=== PATIENT | female | born 2005 | race Caucasian/White ===

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

== ENCOUNTER → 2025-01-17 | Outpatient (CLI) | payer OTHER | END | disposition home or self-care (01) | LOC: LAB 10:57 → LAB SHORT 10:57 | DX: O09.93 Supervision of high risk pregnancy, unspecified, third trimester (principal) | CPT/HCPCS: 87081; 87150 ==

== ENCOUNTER 2025-02-08 18:15 | Inpatient (IN) | payer OTHER ==
[~2025-02-08] VITALS: Ht 162.6 cm; Wt 90.7 kg
[2025-02-08 18:29] VITALS: BP 133/85
[2025-02-08] MEDS ORDERED: Methylergonovine Maleate 0.2MG / ML 1ML Amp IM PRN (20:15)
[2025-02-08] MEDS ORDERED: OXYTOCIN/RINGER'S LACTATE 500 ML IV PRN (20:15)
[2025-02-08] MEDS ORDERED: Ondansetron HCl 2 MG / ML 2ML Vial IV PRN (20:15)
[2025-02-08] MEDS ORDERED: Lactated Ringer's 1,000 ML IV PRN ×3 (20:15)
[2025-02-08] MEDS ORDERED: Oxytocin 10 Unit / ML Vial IM PRN (20:15)
[2025-02-08] MEDS ORDERED: FentaNYL 2mcg/ml-Bup 0.1% Epd 250 ML EPI PRN (20:15)
[2025-02-08] MEDS ORDERED: Misoprostol 200 MCG Tab PR PRN (20:15)
[2025-02-08] MEDS ORDERED: Carboprost Tromethamine 250 MCG/ML 1ML Amp IM PRN (20:15)
[2025-02-08] MEDS ORDERED: Acetaminophen 500 MG Tab PO PRN (20:15)
[2025-02-08] MEDS ORDERED: ePHEDrine Sulfate 50 MG/ML 1ML Injection XX PRN (20:15)
[2025-02-08] MEDS ORDERED: Misoprostol 200 MCG Tab BC PRN (20:15)
[2025-02-08] MEDS ORDERED: Tranexamic Acid 100 ML IV SCH (20:15)
[2025-02-08 20:18] VITALS: BP 137/77
[2025-02-08] MEDS ORDERED: FentaNYL Citrate 50 MCG/ML 2 ML Injection IV PRN (20:20)
[2025-02-08] MEDS ORDERED: Calcium Carbonate 500 MG Tab Chew PO PRN (20:20)
[2025-02-08 20:58] VITALS: BP 136/84
[2025-02-08 22:12] LABS: BASOPHILS ABSOLUTE AUTO 0.03 K/mm3 (0.00-0.23); BASOPHILS PERCENT AUTO 0 % (0-2); EOSINOPHILS ABSOLUTE AUTO 0.15 K/mm3 (0.00-0.68); EOSINOPHILS PERCENT AUTO 2 % (0-6); Hematocrit 34.2 % (33.0-51.0); Hemoglobin 11.3 g/dL (11.5-16.0); IMMATURE GRAN ABSOLUTE AUTO 0.02 K/mm3 (0.00-0.10); IMMATURE GRAN PERCENT AUTO 0 % (0-1); LYMPHOCYTES ABSOLUTE AUTO 2.86 K/mm3 (0.84-5.20); LYMPHOCYTES PERCENT AUTO 30 % (21-46); MONOCYTES ABSOLUTE AUTO 0.77 K/mm3 (0.16-1.47); MONOCYTES PERCENT AUTO 8 % (4-13); Mean Corpuscular HGB 28.3 pg (26.0-34.0); Mean Corpuscular Volume 86 fL (80-100); NEUTROPHILS ABSOLUTE AUTO 5.74 K/mm3 (1.96-9.15); NEUTROPHILS PERCENT AUTO 60 % (41-73); Platelet Count 175 K/mm3 (150-400); RDW Coefficient Variation 14.6 % (11.7-14.2); RDW Standard Deviation 44.6 fL (35.1-46.3); Red Blood Cell Count 3.99 M/mm3 (3.80-5.20); White Blood Cell Count 9.57 K/mm3 (4.00-11.30)
[2025-02-08 22:13] LABS: Mean Platelet Volume 13.6 fL (9.1-12.4)
[2025-02-08] MEDS ORDERED: ALBU90OI INH (23:50)
[2025-02-08] MEDS ORDERED: DULO30 PO (23:52)
[2025-02-09] VITALS (13 sets, daily range): BP systolic 117–161; BP diastolic 61–77
[2025-02-09] MEDS ORDERED: Methylergonovine Maleate 0.2MG / ML 1ML Amp IM PRN (03:20)
[2025-02-09] MEDS ORDERED: Acetaminophen 500 MG Tab PO PRN (03:20)
[2025-02-09] MEDS ORDERED: Misoprostol 200 MCG Tab PR PRN (03:20)
[2025-02-09] MEDS ORDERED: Lactated Ringer's 1,000 ML IV SCH (03:20)
[2025-02-09] MEDS ORDERED: Benzocaine Topical Anesthetic Spray 60GM TOP PRN (03:25)
[2025-02-09] MEDS ORDERED: Lanolin Cream TOP PRN (03:25)
[2025-02-09] MEDS ORDERED: OXYTOCIN/RINGER'S LACTATE 500 ML IV SCH (03:25)
[2025-02-09] MEDS ORDERED: Docusate Sodium 100 MG Cap PO PRN (03:25)
[2025-02-09] MEDS ORDERED: Ibuprofen 400 MG Tab PO PRN (03:25)
[2025-02-09] MEDS ORDERED: Ketorolac Tromethamine 30mg Vial IV PRN (03:25)
[2025-02-09] MEDS ORDERED: Witch Hazel/Glycerin PADS TOP PRN (03:25)
[2025-02-09] MEDS ORDERED: Albuterol HFA200 ACT/6.7 GM INH INH PRN (03:45)
[2025-02-09] MEDS ORDERED: DULoxetine HCL 30 MG Cap DR PO SCH (09:00)
[2025-02-09] MEDS ORDERED: Prenatal Vit/FE Fumarate/FA 1 Tab PO SCH (09:00)
[2025-02-10] VITALS (7 sets, daily range): BP systolic 124–158; BP diastolic 59–72
--- NOTE | 2025-02-10 04:11 | NUR ---
BP RECHECKED WITH RN AT BEDSIDE. REGULAR CUFF ON L ARM APPROPRIATELY FITTED.
== END 2025-02-10 10:30 | disposition home or self-care (01) | DRG 807 ==
LOC: BC 18:15 → OBS 18:15 → BC 18:16 → OBS 20:08 → BC 20:09
PROVIDERS: ADMIT Obstetrics & Gynecology
PROC: 10E0XZZ Delivery of Products of Conception, External Approach (ICD-10-PCS; principal; 2025-02-09)
DX: O99.344 Other mental disorders complicating childbirth (principal); Z37.0 Single live birth; Z3A.39 39 weeks gestation of pregnancy; O99.52 Diseases of the respiratory system complicating childbirth; J45.909 Unspecified asthma, uncomplicated; O71.82 Other specified trauma to perineum and vulva; Z87.440 Personal history of urinary (tract) infections
CPT/HCPCS: 36415; 59025; 81003; 85025; 86850; 86900; 86901; 99214; A9270; J1885; J7120